=== PATIENT | female | born 2000 | race Caucasian/White ===

== ENCOUNTER 2021-06-29 07:15 | Inpatient (IN) ==
[2021-06-29 08:41] LABS: Influenza A virus by PCR Negative (Neg); Influenza B virus by PCR Negative (Neg); RSV by PCR Negative (Neg); SARS CoV2 RNA(COVID-19) InHosp NEGATIVE (Negative)
[2021-06-29] MEDS ORDERED: OXYTOCIN 30 UNITS/500 ML BAG IV PRN (09:33)
[2021-06-29] MEDS ORDERED: DINOPROSTONE 10 MG INSERT PV ONE (09:45)
[2021-06-29 10:15] LABS: Hematocrit (blood only) 32.5 % (37-47); Hemoglobin 10.7 g/dL (12.0-16.0); Mean Corpuscular Hemoglobin 28.9 pg (25-34); Mean Corpuscular Hgb Conc 32.9 g/dL (32-36); Mean Corpuscular Volume 87.8 fL (80-100); Mean Platelet Volume 9.5 fL (7.4-10.4); Platelet Count 207 K/uL (130-400); RDW Coefficient of Variation 13.5 % (11.5-14.5); RDW Standard Deviation 43.5 fL (36.4-46.3); White Blood Count 10.77 K/uL (4.8-10.8)
--- NOTE | 2021-06-29 10:56 | Obstetrical Progress Note ---
Date of Service June 29, 2021 Assessment & Plan (1) Macrosomia: Plan: Induction for macrosomia EFW on 06/15/21 ( 37.1 W gestation) was 3,765gms /97percentile EFW by Missy today is 9 lbs Pt is her for induction of labor FHR: CAT1 Ctx. Minimal VE; 1/thick/post Cervidil placed in Vagina Admission and Anticipated Discharge Date Admission Date: June 29, 2021 Results & Data ([facility]) Vital Signs (Past 12 Hours) Vital Signs Temp Pulse Resp BP 06/29/21 09:37 18 06/29/21 07:33 88 110/55 L 06/29/21 07:31 36.9 C 18
--- NOTE | 2021-06-29 23:52 | Obstetrical Progress Note ---
Date of Service June 29, 2021 Assessment & Plan (1) Macrosomia: Plan: Induction for macrosomia Cervidil removed Cervical exam unchanged FHR; CAT1 Ctx ; mild 2nd Cervidil placed Admission and Anticipated Discharge Date Admission Date: June 29, 2021 Results & Data ([facility]) Vital Signs (Past 12 Hours) Vital Signs Temp Pulse Resp BP 06/29/21 23:44 87 114/70 06/29/21 18:56 36.7 C 20 06/29/21 18:55 90 110/57 L 06/29/21 15:44 86 117/58 L 06/29/21 15:43 36.8 C
[2021-06-30] MEDS ORDERED: DINOPROSTONE 10 MG INSERT PV ONE
[2021-06-30] MEDS: BUTORPHANOL TARTRATE 1 MG/ML VIAL IV PRN ×2 (04:14→13:23)
--- NOTE | 2021-06-30 07:52 | Labor Progress Brief Note ---
Date of Service June 30, 2021 Assessment & Plan (1) Macrosomia: Plan: Pt doing well SROM- Clear fluid FHR; CAT! CTx / 2-5min, mild intensity VE: 2/50/-2 Starting Pitocin augmentation pt agrees with recommendation Admission and Anticipated Discharge Date Admission Date: June 29, 2021 Results & Data ([facility]) Vital Signs (Past 12 Hours) Vital Signs Temp Pulse Resp BP 06/30/21 07:11 100 H 100/50 L 06/30/21 05:45 37.1 C 06/30/21 04:04 89 122/60 06/30/21 04:03 36.6 C 18 06/29/21 23:45 36.8 C 20 06/29/21 23:44 87 114/70
[2021-06-30] MEDS ORDERED: OXYTOCIN 30 UNITS/500 ML BAG IV PRN (07:53)
[2021-06-30] MEDS: LACTATED RINGER'S 1,000 ML IV PRN ×3 (08:40→18:57)
--- NOTE | 2021-06-30 13:06 | Labor Progress Brief Note ---
Date of Service June 30, 2021 Assessment & Plan Admission and Anticipated Discharge Date Admission Date: June 29, 2021 Physical Exam Genitourinary: Manual OB Exam: + cervical dilation 2 cm, + cervical effacement 60% and + station -2 OB Exam Monitor Tracing: + external FHT monitor used, + external uterine monitor used, + category I and + normal FHT variability Results & Data ([facility]) Vital Signs (Past 12 Hours) Vital Signs Temp Pulse Resp BP 06/30/21 11:48 36.5 C 76 16 112/75 06/30/21 10:06 36.6 C 84 20 108/56 L 06/30/21 08:45 83 110/64 06/30/21 08:44 36.8 C 20 06/30/21 07:11 100 H 100/50 L 06/30/21 05:45 37.1 C 06/30/21 04:04 89 122/60 06/30/21 04:03 36.6 C 18
[2021-06-30] MEDS ORDERED: fentaNYL citrate 100 MCG/2 ML VIAL ONE (14:58)
[2021-06-30] MEDS ORDERED: BUPIVACAINE 0.25% 30 ML VIAL ONE (14:58)
[2021-06-30] MEDS ORDERED: ePHEDrine sulfate 50 MG/ML AMP ONE (14:58)
[2021-06-30] MEDS ORDERED: SODIUM CHLORIDE 0.9% INJ 10 ML VIAL ONE (14:58)
[2021-06-30] MEDS ORDERED: fentaNYL 2MCG/ML ROPIVACAINE 1.25MG/ML 100 ML BAG EPI ONE (14:59)
[2021-06-30] MEDS ORDERED: diphenhydrAMINE 50 MG/ML VIAL IV PRN (16:02)
[2021-06-30] MEDS ORDERED: PROMETHAZINE HCL 6.25 MG in SODIUM CHLORIDE 0.9% 50 ML IV PRN (16:02)
[2021-06-30] MEDS ORDERED: NALOXONE HCL 0.4 MG/1 ML VIAL/CARP IV PRN (16:02)
[2021-06-30] MEDS ORDERED: NALOXONE HCL 1 MG in SODIUM CHLORIDE 0.9% 1000ML 1,000 ML IV PRN (16:02)
[2021-06-30] MEDS ORDERED: ePHEDrine sulfate 50 MG/ML AMP IV PRN (16:02)
[2021-06-30] MEDS ORDERED: fentaNYL 2MCG/ML ROPIVACAINE 1.25MG/ML 100 ML BAG EPI PRN (16:02)
[2021-06-30] MEDS ORDERED: ONDANSETRON INJ 2 MG/ML 2 ML VIAL IV PRN (16:02)
[2021-06-30] MEDS ORDERED: NALBUPHINE HCL INJ 10 MG/ML AMP IV PRN (16:02)
--- NOTE | 2021-06-30 16:04 | Anesthesiology Consultation ---
Date of Service June 30, 2021 Assessment & Plan Chart Review Chart Review: Patient NOT seen in Pre Admission Testing and Acceptable Risk for Labor Epidural Consults Requested none ASA ASA2 Proposed Anesthesia Anesthesia Type: Labor Epidural Risk / Benefits Reviewed With: PT / POA / Parent / Guardian, Accepts Plan and Informed Consent Obtained History Height/Weight Height: 5 ft 8 in Weight: 116.573 kg Allergies Allergy/AdvReac Type Severity Reaction Status Date / Time No Known Allergies Allergy Unverified 08/01/12 07:00 Medications Home Medications Medication Instructions Recorded Confirmed Last Taken ferrous sulfate 325 mg (65 mg 325 mg PO DAILY 06/29/21 06/29/21 1 Day Ago iron) tablet (iron) ~06/28/21 prenat.vits,brissa,[id number] 1 tab PO DAILY 06/29/21 06/29/21 1 Day Ago ~06/28/21 sertraline 100 mg tablet (Zoloft) 100 mg PO DAILY 06/29/21 06/29/21 1 Day Ago ~06/28/21 Active Medications Generic Name Dose Route Start Last Admin Trade Name Freq PRN Reason Stop Dose Admin Butorphanol Tartrate 1 mg 06/30/21 03:49 06/30/21 13:23 Butorphanol Tartrate 1 Mg/Ml Vial IV 07/30/21 03:48 1 mg Q1HWA PRN Administration Pain Lactated Ringer's 1,000 mls @ 125 mls/hr 06/29/21 09:33 06/30/21 15:39 Lr IV 07/01/21 09:32 125 mls/hr .Q8H PRN Infusion L&D Protocol Protocol Oxytocin 30 units in 500 mls @ 10 mls/hr 06/30/21 07:53 06/30/21 15:00 Pitocin IV 07/02/21 07:52 0.6 units/hr .Q24H PRN 10 mls/hr Labor Induction/Augmentation Titration Protocol 0.6 UNITS/HR Past Medical History Medical History (Updated 06/29/21 @ 10:52 by Williams Livingston MD) ADD (attention deficit disorder) Anemia Anxiety PCOS (polycystic ovarian syndrome) Exercise / Class Metabolic Activity II 4-5 Yardwork/Stairs/Walk up hill Past Surgical History Surgical History (Updated 06/29/21 @ 09:27 by Jenna B Brown, RN) Hx of foot surgery Past Anesthesia History No Hx of Anesthesia Complications and No Family Hx of Anesthesia Complications History of PONV No Hx of PONV and No Hx of Motion Sickness Social History Smoking Status: Never smoker Hx Alcohol Use: No Hx Substance Use: No substance use type: does not use Physical Exam Vital Signs Last Vital Signs Temp 36.8 C 06/30/21 15:36 Pulse 76 06/30/21 16:01 Resp 20 06/30/21 15:36 BP 96/55 L 06/30/21 16:01 Pulse Ox 100 06/30/21 16:00 ENMT Mouth: no dentition abnormality Thyromental Distance: > or= 3.5 Finger Breadths Mallampati Class: II Neck normal visual inspection Respiratory normal respiratory effort Auscultation: lungs clear to auscultation bilaterally Cardiovascular Rate/Rhythm: regular rate and regular rhythm Psychiatric Orientation: alert Testing Laboratory Results 06/29/21 09:58
--- NOTE | 2021-07-01 00:58 | Delivery Summary ---
Vaginal Delivery Summary Date of Service July 01, 2021 Vaginal Delivery Summary Delivery Note live female KRIS over intact perineum with nuchal cord x1 reduced at delivery of head with delayed cord clamping and Apgars 8/9 weight pending. Cord blood obtained followed by spontaneous delivery of intact placenta. No tears. EBL 200 ml. Final sponge and instrument count are correct. Mom and baby stable.
[2021-07-01] MEDS ORDERED: HYDROCORTISONE ACETATE 25 MG SUPP PR PRN (01:07)
[2021-07-01] MEDS ORDERED: OXYTOCIN 30 UNITS/500 ML BAG IV PRN (01:07)
[2021-07-01] MEDS ORDERED: bisacodyL 10 MG SUPP PR PRN (01:07)
[2021-07-01] MEDS ORDERED: BENZOCAINE 20% AER SPR 82.5 GM CAN EXT PRN (01:07)
[2021-07-01] MEDS ORDERED: SUPERCREAM 0.870% 15 GM JAR EXT PRN (01:07)
[2021-07-01] MEDS ORDERED: DIPHTHERIA/TETANUS/PERTUSSIS 0.5 ML SYR/VIAL IM ONE (01:07)
[2021-07-01] MEDS ORDERED: ACETAMINOPHEN 325 MG TAB PO PRN (01:07)
[2021-07-01] MEDS: IBUPROFEN 600 MG TAB PO PRN ×5 (03:30→21:09)
[2021-07-01] MEDS: PRENATAL VITAMIN 1 TAB PO SCH (08:40)
[2021-07-01] MEDS: FERROUS SULFATE 325 MG TAB PO SCH (08:40)
[2021-07-01] MEDS: DOCUSATE SODIUM 100 MG CAP PO SCH ×2 (08:40→21:09)
[2021-07-01] MEDS ORDERED: FERROUS SULFATE 325 MG TAB PO SCH (09:00)
[2021-07-01] MEDS ORDERED: NON-FORMULARY MEDICATION (Prenat.Vits,Cal,Min-Iron-Folic Tablet) PO SCH (09:00)
[2021-07-01] MEDS ORDERED: SERTRALINE HCL 100 MG TABLET PO SCH ×2 (09:00→21:00)
--- NOTE | 2021-07-01 09:40 | Anesthesia Procedure Note ---
Date of Service July 01, 2021 Anesthesia Post Epidural Note Vital Signs Vital Signs: Temp Pulse Resp BP Pulse Ox 37.0 C 95 H 16 119/69 97 07/01/21 03:25 07/01/21 03:25 07/01/21 03:25 07/01/21 03:25 07/01/21 03:25 Pain Intensity Abdomen: Pain Intensity: 5 Episiotomy/Laceration: Pain Intensity: 3 Notes Mental Status: alert / awake / arousable and participated in evaluation Nausea / Vomiting: adequately controlled Pain: adequately controlled Airway Patency, RR, SpO2: stable & adequate BP & HR: stable & adequate Hydration State: stable & adequate Neuraxial Anesthesia: was administered and sensory block is resolving Anesthetic Complications: no major complications apparent Epidural: Removed without complications and With tip intact
[2021-07-01] MEDS ORDERED: Nursing to Pharmacy Communication SCH (12:45)
[2021-07-02 06:52] LABS: Hematocrit (blood only) 28.6 % (37-47); Hemoglobin 9.2 g/dL (12.0-16.0); Mean Corpuscular Hemoglobin 28.8 pg (25-34); Mean Corpuscular Hgb Conc 32.2 g/dL (32-36); Mean Corpuscular Volume 89.7 fL (80-100); Mean Platelet Volume 9.4 fL (7.4-10.4); Platelet Count 202 K/uL (130-400); Red Blood Count 3.19 M/uL (4.2-5.4); White Blood Count 14.73 K/uL (4.8-10.8)
--- NOTE | 2021-07-02 08:25 | Obstetrical Progress Note ---
Date of Service July 02, 2021 Subjective Ambulation: ambulating normally Voiding: no voiding problems Passing Gas:: Yes Diet Tolerance:: regular diet Lochia:: Small Feeding Type:: breast feeding Current Pain Level(1-10): 0 doing well plans for d/c in AM Results & Data ([facility]) Vital Signs (Past 12 Hours) Vital Signs Temp Pulse Resp BP Pulse Ox 07/01/21 23:40 36.7 C 87 18 100/62 98 07/01/21 20:30 36.7 C 85 20 116/72 99
[2021-07-02] MEDS: FERROUS SULFATE 325 MG TAB PO SCH (08:55)
[2021-07-02] MEDS: DOCUSATE SODIUM 100 MG CAP PO SCH (08:55)
[2021-07-02] MEDS: PRENATAL VITAMIN 1 TAB PO SCH (08:55)
[2021-07-02] MEDS: IBUPROFEN 600 MG TAB PO PRN ×2 (09:34→16:38)
[2021-07-02] MEDS ORDERED: bisacodyL 5 MG TABEC PO SCH (20:00)
== END 2021-07-02 17:20 | disposition home or self-care (01) | DRG 807 ==
LOC: 4S1 07:15 → 4S2 07-01 03:02